=== PATIENT | male | born 1970 | race Caucasian/White ===

== ENCOUNTER 2020-01-26 19:12 | Emergency (ER) | payer MEDICARE, MEDICAID ==
[~2020-01-26] VITALS: Ht 185.4 cm; Wt 118.2 kg
[2020-01-26 19:18] VITALS: TEMP 98.9
[2020-01-26 19:50] LABS: BASO % 0.4 % (0.0-2.0); EOS # 0.1 (0.0-0.7); EOS % 1.6 % (0-4.0); GRAN % 53.9 % (42.2-75.2); HEMATOCRIT 41.2 % (42.0-52.0); LYMPH # 1.9 (1.2-3.4); LYMPH % 33.4 % (20.0-51.0); MEAN CELL VOLUME 86 fl (80.0-100.0); MEAN CORPUSCULAR HEMOGLOBIN 29 pg (27.0-31.0); MEAN CORPUSCULAR HGB CONC 34 g/dl (33.0-37.0); MEAN PLATELET VOLUME 10.3 fl (7.4-10.4); MONO # 0.6 (0.1-0.6); MONO % 10.2 % (1.7-9.3); PLATELET COUNT 168 K/mm3 (130-400); RED BLOOD COUNT 4.77 M/mm3 (4.20-5.60); REDCELL DISTRIBUTION WIDTH-CV 13.5 % (11.5-14.5)
[2020-01-26 20:01] LABS: ALANINE AMINOTRANSFERASE 38 U/L (4-49); ALBUMIN 4.3 gm/dL (3.5-5.0); ALKALINE PHOSPHATASE 98 U/L (50-136); ANION GAP 13 mmol/L (7-16); AST,SGOT 28 U/L (15-37); BILIRUBIN,TOTAL 0.6 mg/dL (0.0-1.0); BLOOD UREA NITROGEN 15 mg/dL (9-20); CALCIUM 8.8 mg/dL (8.4-10.2); CARBON DIOXIDE 21 mmol/L (22-30); CHLORIDE 100 mmol/L (98-107); CREATININE, serum 1.01 (0.66-1.25); SODIUM 134 mmol/L (137-145); TOTAL PROTEIN 7.2 gm/dL (6.4-8.2)
[2020-01-26 20:05] LABS: ACETONE,SERUM NEGATIVE
[2020-01-26 20:06] LABS: GLUCOSE 448 mg/dL (74-106)
[2020-01-26] MEDS ORDERED: GLUCOPHAGE500 MG/TAB PO (22:08)
[2020-01-26 23:13] VITALS: BP 110/85; PULSE 78
== END 2020-01-26 23:13 | disposition home or self-care (01) ==
LOC: COL.ER 19:12
PROVIDERS: Nurse Practitioner
DX: E11.9 Type 2 diabetes mellitus without complications (principal); I10 Essential (primary) hypertension; F17.210 Nicotine dependence, cigarettes, uncomplicated; Z79.4 Long term (current) use of insulin
CPT/HCPCS: J1815; J7030

== ENCOUNTER 2020-02-13 02:24 | Emergency (ER) | payer MEDICARE, MEDICAID ==
[~2020-02-13] VITALS: Ht 182.9 cm; Wt 119.5 kg
[~2020-02-13 02:24] MED LIST: GLUCOPHAGE500 MG/TAB PO
[2020-02-13 02:37] VITALS: TEMP 97.8
[2020-02-13 02:55] LABS: BASO % 0.4 % (0.0-2.0); EOS # 0.1 (0.0-0.7); EOS % 1.3 % (0-4.0); GRAN # 3.7 (1.4-6.5); GRAN % 52.1 % (42.2-75.2); HEMATOCRIT 41.5 % (42.0-52.0); HEMOGLOBIN 14.1 g/dl (13.5-18.0); LYMPH # 2.6 (1.2-3.4); LYMPH % 36.8 % (20.0-51.0); MEAN CELL VOLUME 87 fl (80.0-100.0); MEAN CORPUSCULAR HEMOGLOBIN 29 pg (27.0-31.0); MEAN CORPUSCULAR HGB CONC 34 g/dl (33.0-37.0); MEAN PLATELET VOLUME 10.1 fl (7.4-10.4); MONO # 0.6 (0.1-0.6); MONO % 8.8 % (1.7-9.3); PLATELET COUNT 170 K/mm3 (130-400); REDCELL DISTRIBUTION WIDTH-CV 13.9 % (11.5-14.5)
[2020-02-13 03:06] LABS: ACETONE,SERUM NEGATIVE
[2020-02-13 03:09] LABS: ALANINE AMINOTRANSFERASE 40 U/L (4-49); ALBUMIN 4.6 gm/dL (3.5-5.0); ALKALINE PHOSPHATASE 86 U/L (50-136); ANION GAP 10 mmol/L (7-16); AST,SGOT 26 U/L (15-37); BILIRUBIN,TOTAL 0.7 mg/dL (0.0-1.0); BLOOD UREA NITROGEN 9 mg/dL (9-20); CALCIUM 9.2 mg/dL (8.4-10.2); CARBON DIOXIDE 26 mmol/L (22-30); CHLORIDE 98 mmol/L (98-107); GLUCOSE 295 mg/dL (74-106); MAGNESIUM 1.5 mg/dL (1.6-2.3); POTASSIUM 4.1 mmol/L (3.4-5.0); SODIUM 134 mmol/L (137-145); TOTAL PROTEIN 7.9 gm/dL (6.4-8.2)
[2020-02-13 03:20] LABS: COLLECTION METHOD CLEAN CATCH
[2020-02-13] MEDS ORDERED: LEVEMIR100 U/ML SQ (03:24)
[2020-02-13] MEDS ORDERED: GLUCOPHAGE1000 MG PO (03:24)
[2020-02-13] MEDS ORDERED: PRIL40 PO (03:27)
[2020-02-13] MEDS ORDERED: TRULICITY0.75 MG/0. SQ (03:27)
[2020-02-13] MEDS ORDERED: LYRICA 100MG C100 M1 PO (03:27)
[2020-02-13 03:28] LABS: PH 7 (5-8); SQUAMOUS EPITHELIAL 0-2 /hpf; URINE APPEARANCE Clear; URINE BACTERIA None Seen /hpf; URINE BILIRUBIN Negative (NEGATIVE); URINE BLOOD Negative (NEGATIVE); URINE COLOR Straw; URINE GLUCOSE 3+ (NEGATIVE); URINE KETONE Negative (NEGATIVE); URINE LEUKOCYTE ESTERASE Negative (NEGATIVE); URINE NITRATE Negative (NEGATIVE); URINE PROTEIN(semi-quant) Negative (NEGATIVE); URINE RBC None Seen /hpf; URINE UROBILINOGEN Negative (NEGATIVE)
[2020-02-13] MEDS ORDERED: PROAIR HFA0.09 MG/AC IH (03:28)
[2020-02-13] MEDS ORDERED: IMITREX100 MG PO (03:28)
[2020-02-13] MEDS ORDERED: SEROQUEL 200MG200 MG PO (03:28)
[2020-02-13] MEDS ORDERED: NOVLOG SQ (04:22)
[2020-02-13 04:37] VITALS: BP 118/77; PULSE 78
== END 2020-02-13 04:48 | disposition home or self-care (01) ==
LOC: COL.ER 02:24
PROVIDERS: Emergency Medicine
DX: E11.9 Type 2 diabetes mellitus without complications (principal); F17.210 Nicotine dependence, cigarettes, uncomplicated; Z79.4 Long term (current) use of insulin
CPT/HCPCS: J3475; J7030